=== PATIENT | female | born 1960 | race African-American/Black ===

== ENCOUNTER 2019-04-01 11:49 | Inpatient (IN) ==
--- NOTE | 2019-04-01 13:08 | PROVIDER DOCUMENTATION ---
HPI-Respiratory General - General Chief Complaint: Shortness of Breath Stated Complaint: oxygen low Time Seen by Provider: 04/01/19 12:22 Source: patient, family Allergies/Adverse Reactions: Patient Allergies Allergy/AdvReac Type Severity Reaction Status Date / Time No Known Allergies Allergy Verified 04/01/19 14:56 Home Medications: Home Medication List Medication Instructions Recorded Confirmed Last Taken Type Amlodipine [Norvasc] 10 mg PO DAILY 05/17/17 10/25/18 Unknown History Fluticasone/Salmet 500/50 INH 1 inh PO BID 03/14/18 10/25/18 Unknown History [Advair 500/50 Diskus] Fluphenazine HCl [Prolixin] 50 mg IM DIRECTED #2 vial 04/02/18 10/09/18 Unknown Rx Paliperidone Palmitate [Invega 234 mg IM Q30D #1 syringe 04/02/18 10/25/18 Unknown Rx Sustenna] Trazodone [Desyrel] 25 mg PO HS PRN PRN #60 tab 04/02/18 10/25/18 Unknown Rx Albuterol 2.5MG/Ipratrop 0.5MG 3 ml INH Q4H PRN PRN #180 neb 10/15/18 10/25/18 Unknown Rx [Duoneb (A & A)] Furosemide [Lasix] 40 mg PO BID #60 tab 10/15/18 10/25/18 10/25/18 Rx Potassium Chloride E.r. [Micro-K] 10 meq PO DAILY #30 cap 10/15/18 10/25/18 Rx Cefdinir 300 mg PO BID 10/25/18 10/25/18 10/25/18 History Diclofenac Sodium [Voltaren] 75 mg PO TID PRN 10/25/18 10/25/18 Unknown History Meloxicam 15 mg PO DAILY 10/25/18 10/25/18 10/25/18 History Prednisone 20 mg PO BID 10/25/18 10/25/18 10/25/18 History - History of Present Illness-Resp Nature of Presenting Problem: reports while that she was at the [facility], oxygen level is 50s, disoriented, right arm weakness, unable to carry her oxygen tank. Review of Systems - Adult - REVIEW OF SYSTEMS - ADULT Constitutional: reports: no symptoms reported Eyes: reports: no symptoms reported Ears, Nose, Mouth & Throat: reports: no symptoms reported Cardiovascular: reports: no symptoms reported Respiratory: reports: no symptoms reported Gastrointestinal: reports: no symptoms reported Genitourinary: reports: no symptoms reported Musculoskeletal: reports: no symptoms reported Integumentary: reports: no symptoms reported Neurological: reports: no symptoms reported Psychiatric: reports: no symptoms reported Endocrine: reports: no symptoms reported Hematologic/Lymphatic: reports: no symptoms reported Allergic/Immunologic: reports: no symptoms reported All Other Systems: Reviewed and Negative Past History - Adult - PAST MEDICAL HISTORY-ADULT Review of Records: reports: Old Records Reviewed, Nursing Assessment Review, Medications Reviewed, Social history reviewed & non-contributory. Major Childhood Illnesses: reports: history unknown Cardiovascular: reports: HTN Respiratory: reports: asthma, COPD Gastrointestinal: reports: denies history Obstetrical/Gynecological: reports: denies history Genitourinary: reports: denies history Musculoskeletal: reports: denies history Neurological: reports: denies history Psychiatric: reports: schizophrenia Endocrine/Immune: reports: Diabetes Other Conditions: reports: denies history - PRIOR SURGERIES/PROCEDURES Surgical/Procedure History: reports: BTL - IMMUNIZATION STATUS Childhood Immunizations: See Nurse Assessment Flu Vaccine: See Nurse Assessment - FAMILY HISTORY Family History: reviewed, not pertinent - SOCIAL HISTORY Smoking: denies Substance Use: none/never Alcohol Use Frequency: never Living Situation: family Physical Exam-General - PHYSICAL EXAM-ADULT Initial Vital Signs Reviewed: Yes - CONSTITUTIONAL General Appearance: appears well, alert, other (h/o schizo, flat affect) - EYES Eyes: PERRL/EOMI, pink conjunctivae - HEAD, EARS, NOSE, MOUTH & THROAT HENMT: normocephalic/atraumatic, normal ENT inspection, other - NECK Neck: non-tender, full range of motion, supple - RESPIRATORY Respiratory: chest non-tender, lungs clear, normal breath sounds - CARDIOVASCULAR Cardiovascular: normal peripheral pulses, regular rate, rhythm, no edema - GASTROINTESTINAL (ABDOMEN) Abdominal Exam: normal bowel sounds, non tender, soft - MUSCULOSKELETAL Back Exam: normal inspection, no CVA tenderness, no vertebral tenderness Progress - PLAN OF CARE/RESULTS Progress/Plan/Lab Results: Vital Signs - 8 hr 04/01/19 11:51 04/01/19 11:56 04/01/19 14:57 Temperature 97.5 F L Pulse Rate 81 74 Respiratory Rate 18 19 Blood Pressure 148/72 162/89 O2 Sat by Pulse Oximetry 91 L 93 L 04/01/19 14:58 04/01/19 15:00 04/01/19 15:10 Temperature Pulse Rate 76 75 75 Respiratory Rate 14 15 20 Blood Pressure 162/89 O2 Sat by Pulse Oximetry 93 L 92 L 90 L 04/01/19 15:20 04/01/19 15:30 04/01/19 15:40 Temperature Pulse Rate 73 73 74 Respiratory Rate 19 21 17 Blood Pressure O2 Sat by Pulse Oximetry 93 L 94 L 91 L 04/01/19 15:50 04/01/19 16:00 04/01/19 16:10 Temperature Pulse Rate 73 76 75 Respiratory Rate 21 16 14 Blood Pressure O2 Sat by Pulse Oximetry 90 L 95 92 L 04/01/19 16:20 04/01/19 16:30 04/01/19 16:35 Temperature Pulse Rate 73 85 Respiratory Rate 14 18 Blood Pressure O2 Sat by Pulse Oximetry 87 L 94 L 91 L Laboratory Results - last 24 hr 04/01/19 04/01/19 04/01/19 14:25 14:25 14:25 WBC 8.22 RBC 5.29 Hgb 15.4 Hct 49.9 H MCV 94.3 MCH 29.1 MCHC 30.9 L RDW Std Deviation 19.0 H Plt Count 296 MPV 9.2 Immature Gran % (Auto) 0.2 Neut % (Auto) 52.3 Lymph % (Auto) 39.5 [place] % (Auto) 6.7 Eos % (Auto) 0.7 Baso % (Auto) 0.6 Immature Gran # (Auto) 0.02 Neut # (Auto) 4.29 Lymph # (Auto) 3.25 [place] # (Auto) 0.55 Eos # (Auto) 0.06 Baso # (Auto) 0.05 Specimen Type Sample Site pH pCO2 pO2 HCO3 Base Excess Oxyhemoglobin ABG O2 Sat (Calculated) ABG O2 Saturation ABG Carboxyhemoglobin ABG Methemoglobin Dionisio Test A-a O2 Difference Total Hemoglobin Lactate Liter Flow Blood Gas Modality FiO2 % Sodium 141 Potassium 2.8 L Chloride 91 L Carbon Dioxide 39 H Anion Gap 11 BUN 3 L Creatinine 0.6 Estimated GFR/1.73 m2 > 60 BUN/Creatinine Ratio 5 Glucose 81 Calculated Osmolality 277 Calcium 9.0 Magnesium 1.9 Total Bilirubin 0.56 AST 10 ALT < 5 L Alkaline Phosphatase 111 H Eim-S-Oyyhenyudjt Pept 802 H Total Protein 7.6 Albumin 4.1 Globulin 3.5 Albumin/Globulin Ratio 1.2 04/01/19 15:55 WBC RBC Hgb Hct MCV MCH MCHC RDW Std Deviation Plt Count MPV Immature Gran % (Auto) Neut % (Auto) Lymph % (Auto) [place] % (Auto) Eos % (Auto) Baso % (Auto) Immature Gran # (Auto) Neut # (Auto) Lymph # (Auto) [place] # (Auto) Eos # (Auto) Baso # (Auto) Specimen Type ARTERIAL Sample Site R RADIAL pH 7.42 pCO2 78 H* pO2 58 L HCO3 40.8 H Base Excess 20.9 H Oxyhemoglobin 84.3 L* ABG O2 Sat (Calculated) 17.4 ABG O2 Saturation 91.7 L ABG Carboxyhemoglobin 7.00 H* ABG Methemoglobin 1.2 Dionisio Test YES A-a O2 Difference 101.0 Total Hemoglobin 14.7 Lactate 0.60 Liter Flow 4.0 Blood Gas Modality CANNULA FiO2 % 36.0 Sodium Potassium Chloride Carbon Dioxide Anion Gap BUN Creatinine Estimated GFR/1.73 m2 BUN/Creatinine Ratio Glucose Calculated Osmolality Calcium Magnesium Total Bilirubin AST ALT Alkaline Phosphatase Cwz-Z-Rolzwphcgiv Pept Total Protein Albumin Globulin Albumin/Globulin Ratio Orders Category Date Time Status CT HEAD W/O CONTRAST [CT] Stat Exams 04/01/19 17:29 Ordered cxr [CHEST-2 VIEWS] [RAD] Stat Exams 04/01/19 13:12 Completed ABG [RESP] Routine Lab 04/01/19 15:55 Completed BNP [PRO B-NATRIURETIC PEPTIDE] Stat Lab 04/01/19 14:25 Completed CBC WITH ELECTRONIC DIFF [HEME] Stat Lab 04/01/19 14:25 Completed COMPREHENSIVE METABOLIC PANEL [CHEM] Stat Lab 04/01/19 14:25 Completed MAGNESIUM [CHEM] Stat Lab 04/01/19 14:25 Completed Albuterol 2.5MG/Ipratrop 0.5MG [Duoneb (A & A)] Med 04/01/19 16:24 Discontinued 3 ml INH NOW ONE Methylprednisolone Sod Succ [Solu-Medrol] Med 04/01/19 16:25 Discontinued 125 mg IV NOW ONE Potassium Chloride 20% Liquid Med 04/01/19 16:06 Discontinued 40 meq PO NOW ONE Aerosol Treatments Routine Oth 04/01/19 16:25 Active Aerosol Treatments Stat Oth 04/01/19 16:25 Active [facility] [address] , [address], [place] [address] Department of Imaging Patient: YUMIKO GARCIA ADM Date: 04/01/19 MR#: [id number] : 1960 ADM Status: PRE ER Age/Sex: 58/F Room/Bed: Loc: ED Ordering Physician: Cyn Nguyen MD Family Physician: None,PCP Reason for Procedure: pna Signed EXAM: CHEST-2 VIEWS 04/01/2019 HISTORY: pna TECHNIQUE: PA and lateral chest COMMENT: There is cardiomegaly. There is increased interstitial markings in the lung bases. The latter appears worse than on the previous examination of 03/18/2019. There appear to be small pleural effusions bilaterally. IMPRESSION: Pulmonary edema and pleural effusions with cardiomegaly. Electronically signed by Girish Bustillos 04/01/2019 1:27 PM 04/01/19 1327 Interpreting Physician: Girish Bustillos MD Dictated Date/Time: 04/01/19 1327 cc: Cyn Nguyen MD; None,PCP Result Diagrams: 04/01/19 14:25 04/01/19 14:25 - REASSESSMENT Reassessment #1 Time Reassessed: 16:12 (dysfunctional oxygen tank. likely exaggerate her copd. ) Reassessment #2 Time Reassessed: 17:31 (WALKING TO DISCHARGE PT, HOWEVER WHILE ON HER OXYGEN SUPPLEMENT HERE, PT SAT WENT TO 80% DISCUSSED WITH HOSPITALIST FOR ADMISSION) - CONSULTS/PCP/HOSPITALIST Notification #1 *Consult/PCP/Hospitalist*: DR. GTZ Time Discussed: 17:32 Consult Disposition: Admit Departure - Departure Date of Disposition Decision: 04/01/19 Time of Disposition Decision: 16:09 DIAGNOSIS: Schizophrenia, Hypokalemia, COPD with exacerbation, Pulmonary edema, Pleural effusion Disposition: ADMITTED INPATIENT Certified Medical Emergency: Emergent Condition: Stable Additional Freetext Instructions: follow up with your doctor tomorrow worsening symptoms return to ED. ED Follow Up Instructions: You have been treated by a care provider in the Emergency Department. These instructions are being provided to you so you can have an understanding of how to care for yourself upon discharge. Upon discharge from the Emergency Department, you are responsible for making arrangements for follow-up care by a physician of your choice. Take all prescribed medications as directed. Return to the Emergency Department immediately for any new or worsening symptoms. You may call the Physician Referral phone number at [phone] to obtain a list of Physicians who are taking new patients. Referrals and Follow-Ups: None,PCP [Primary Care Provider] - Call for Appoint. 1-2days - Critical Care Note This patient required my direct & personal management of CC.: No Attestation - Physician/ YOU Attestation The physician spent face to face time with patient:: Yes Advanced Practice Provider documentation review:: Supervising physician onsite and consulted in the evaluation and care of this patient. The physician did have a face to face encounter with the patient.
--- NOTE | 2019-04-01 13:14 | ED EKG INTERP ---
This chart was entered by Joelle Patino Scribe, acting as scribe for Aniket Paredes MD. EKG Interpretation - EKG Time of EKG reading by physician:: 12:00 EKG Read and Signed by:: Aniket Paredes EKG Interpretation (*Must complete 3 of following elements*): Normal (borderline) Rate: 68 Rhythm: nsr [place]: normal QRS: normal RI Interval: normal ST Wave: normal Comments: possible left atrial enlargement Attestation - Physician/ YOU Attestation Patient care was provided by Advanced Practice Provider:: No The physician spent face to face time with patient:: Yes Advanced Practice Provider documentation review:: Supervising physician onsite and consulted in the evaluation and care of this patient. The physician did have a face to face encounter with the patient. This chart was documented by the indicated scribe, (Joelle Patino Scribe) and accurately reflects the services I performed and decisions made by me, Aniket Paredes MD, as attested by the provider's signature.
--- NOTE | 2019-04-01 13:30 | Diag Imaging Result Doc PS360 ---
EXAM: CHEST-2 VIEWS 04/01/2019 HISTORY: pna TECHNIQUE: PA and lateral chest COMMENT: There is cardiomegaly. There is increased interstitial markings in the lung bases. The latter appears worse than on the previous examination of 03/18/2019. There appear to be small pleural effusions bilaterally. IMPRESSION: Pulmonary edema and pleural effusions with cardiomegaly. Electronically signed by Girish Bustillos 04/01/2019 1:27 PM
[2019-04-01 14:38] LABS: BASO# 0.05 X1000 (0.0-0.2); BASO% 0.6 % (0.0-0.8); EOS# 0.06 X1000 (0.0-0.7); EOS% 0.7 % (0.0-10.0); HEMATOCRIT 49.9 % (37.0-47.0); HEMOGLOBIN 15.4 g/dL (12.0-16.0); IMM GRAN# 0.02 X1000 (0.0-0.04); IMM GRAN% 0.2 % (0.0-0.5); LYMPH# 3.25 X1000 (1.2-3.4); LYMPH% 39.5 % (20.5-51.1); MCH 29.1 PG (27-31); MCHC 30.9 g/dL (33-37); MCV 94.3 FL (81-99); MONO# 0.55 X1000 (0.11-0.59); MONO% 6.7 % (1.7-9.3); MPV 9.2 FL (7.4-10.4); NEUT# 4.29 X1000 (1.4-6.5); NEUT% 52.3 % (42.2-75.2); PLT 296 X1000 (130-400); RBC 5.29 XMIL (4.2-5.4); WBC 8.22 X1000 (4.8-10.8)
[2019-04-01 15:28] LABS: AGAP 11; ALB/GLOB RATIO 1.2; ALBUMIN 4.1 g/dL (3.5-5.0); ALKALINE PHOSPHATASE 111 U/L (32-104); BUN 3 mg/dL (8-22); CHLORIDE 91 mmol/L (98-107); COSMO 277; CREATININE 0.6 mg/dL (0.5-0.9); ESTIMATED GFR > 60; GLUCOSE 81 mg/dL (70-104); GOT 10 U/L (10-30); GPT < 5 U/L (10-36); MAGNESIUM 1.9 mg/dL (1.5-2.7); POTASSIUM 2.8 mmol/L (3.5-5.1); SODIUM 141 mmol/L (136-145); TCO2 39 mmol/L (25-35); TOTAL BILIRUBIN 0.56 mg/dL (0.20-1.00); TOTAL PROTEIN 7.6 g/dL (6.3-8.3)
[2019-04-01 16:03] LABS: ALLEN TEST YES; BE 20.9 mmoll (-3.0-3.0); BLOOD TYPE ARTERIAL; HCO3-(ACT) 40.8 mmoll (20.0-26.0); METHB 1.2 % (0.0-1.5); O2(CT) 17.4 mL/dL (15.0-23.0); PO2(98.6) 58 mmHg (60-100); SAMPLE BLOOD; SAO2 91.7 % (95.0-100.0); THB 14.7 g/dL (11.5-17.4); pH(98.6) 7.42 (7.35-7.45)
[2019-04-01 16:05] LABS: PCO2(98.6) 78 mmHg (35-45)
[2019-04-01 16:06] LABS: MODALITY CANNULA; O2HB 84.3 % (95.0-99.0)
[2019-04-01] MEDS ORDERED: POTASSIUM CHLORIDE 20% LIQUID PO ONE (16:06)
[2019-04-01] MEDS ORDERED: DUONEB (A & A) INH ONE (16:24)
[2019-04-01] MEDS ORDERED: SOLU-MEDROL IV ONE (16:25)
[2019-04-01] MEDS ORDERED: LASIX IV ONE (17:36)
[2019-04-01] MEDS ORDERED: XOPENEX NEB INH PRN (18:17)
--- NOTE | 2019-04-01 18:52 | Diag Imaging Result Doc PS360 ---
CT HEAD W/O CONTRAST - 04/01/2019 INDICATION: CVA COMPARISON: 02/28/2019 FINDINGS: The ventricles and sulci are normal in size and contour. No intracranial mass or hemorrhage. The skull is intact. The sinuses mastoids and middle ears are clear. IMPRESSION: Negative exam. This exam was performed using automated exposure control, adjustment of mA or kV according to patient size, and/or use of iterative reconstruction technique Electronically signed by Jason Nguyen 04/01/2019 6:49 PM
[2019-04-01] MEDS: ROCEPHIN 1 GM in NS 50 ML IV SCH (19:30)
[2019-04-01] MEDS: NICODERM PATCH TD SCH (19:30)
[2019-04-01] MEDS: XOPENEX NEB INH SCH ×2 (19:40→22:37)
--- NOTE | 2019-04-01 20:14 | HISTORY AND PHYSICAL ---
PRIMARY CARE PROVIDER: None. CHIEF COMPLAINT: Dyspnea. HISTORY OF PRESENT ILLNESS: Ms. Chau is a 58-year-old female well known to our service with a history of COPD, schizophrenia, and hypertension who comes to the ER today with complaints of dyspnea. Per ER report, her O2 tank, which she uses at home, was dysfunctional and not working correctly. She was hypoxic on arrival to the ER and has maintained marginal O2 saturations since she arrived. She is a poor historian due to her psychiatric history. Apparently she lives at a local long term. She denies any other complaints other than the shortness of breath. No fever or chest pain. No lower extremity edema, orthopnea, nausea, or vomiting. Chest x-ray showed some mild pulmonary edema and cardiomegaly, more right-sided than left. ABG did show hypercapnic and hypoxemic respiratory failure, which is well compensated. Lasix and BiPAP has been ordered as well as IV steroids and antibiotics. She will be admitted for acute on chronic hypercapnic and hypoxemic respiratory failure. PAST MEDICAL HISTORY: 1. Hypertension. 2. COPD, on home O2. 3. Schizophrenia. 4. Type 2 diabetes. 5. Nicotine dependence. PAST SURGICAL HISTORY: Bilateral tubal ligation. SOCIAL HISTORY: She smokes a pack a day. She either lives with her family or in a local long term on [facility]. There is no family at the bedside and she is an extremely poor historian. There is no drug or alcohol use. REVIEW OF SYSTEMS: Very limited, but a 10 point review of systems was obtained and found to be negative with the exception of the HPI. HOME MEDICATIONS: Not compiled as of yet. ALLERGIES: No known drug allergies. PHYSICAL EXAMINATION: VITAL SIGNS: Blood pressure 148/72, heart rate 75, respiratory rate 17, and O2 saturation 92% on 4 L nasal cannula. Temperature is 97.5. GENERAL: This is a disheveled and chronically ill appearing, 58-year-old female lying in a hospital bed in no acute distress. NEUROLOGIC: The patient is disoriented, stating she is at [facility]. She does not know the year but is able to state her name. She follows commands without focal deficits. HEENT: The head is atraumatic and normocephalic. Her pupils are equal, round, and reactive to light. Oral mucosa is moist. NECK: Trachea is midline. There is no JVD. CHEST: Inspiratory and expiratory wheezes bilaterally with some crackles in the lung bases. CARDIOVASCULAR: Regular rate and rhythm. S1 and S2 are noted. There are no murmurs. GI: Soft, nondistended, and nontender. Bowel sounds are positive. EXTREMITIES: Trace edema. Pulses are 1+ bilaterally. DIAGNOSTIC DATA: Chest x-ray shows cardiomegaly and pulmonary edema. WBC 8.2, hemoglobin 15.4, hematocrit 49.9, and platelet count 296. ABG: pH 7.42, CO2 78, O2 58, bicarbonate 40.8, oxyhemoglobin 84.3, carboxyhemoglobin 7. Sodium 141, potassium 2.8, chloride 91, CO2 39, anion gap 11, BUN 3, creatinine 0.6, glucose 81, calcium 9, magnesium 1.9, bilirubin 0.56, AST 10, ALT less than 5, alkaline phosphatase 111. proBNP 802. ASSESSMENT AND PLAN: 1. Combined acute on chronic hypercapnic and hypoxemic respiratory failure: Likely due to chronic obstructive pulmonary disease exacerbation, possibly malfunctioning oxygen tank. Will continue breathing treatments, aggressive pulmonary toilet, intravenous steroids, and antibiotics. We have also added some Lasix. Will trend her cardiac enzymes and monitor her on telemetry. 2. Chronic obstructive pulmonary disease exacerbation: As above. Will continue aggressive pulmonary hygiene. Recheck arterial blood gas at 10:00 p.m. tonight and again in the morning. Recheck a chest x-ray in the morning. If no improvement, she may need a Pulmonary consultation. 3. Hypokalemia: Will replace and recheck. Continue treating as necessary. 4. Schizophrenia: Will continue home medications once compiled. 5. Report of diabetes mellitus: Does not appear that patient is on any antidiabetic. Her last hemoglobin A1c was 5.6 but this was in September of 2016. Will recheck a hemoglobin A1c and monitor her sugars closely and treat if necessary. 6. Nicotine dependence: We have prescribed a nicotine patch. Will continue cessation education. 7. Disposition: We need to find out exactly what her living situation is, if she has the ability to have her oxygen refilled, and what her overall care is. Will consult Social Work. 8. Deep venous thrombosis prophylaxis with sequential compression devices. Further recommendations to follow. Dictated by JOHNATHAN Lake for Baldev Herbert MD cc: JOHNATHAN Lake MD I have seen and examined Ms Chau today. No family members at bedside. Ms Chau presents with Dyspnea secondary to COPD exacerbation with hypoxemic and hypercarbic failure. I agree with the above HPI and the plan reflects my opinion discussed with the LINE PAINTING MACHINE OPERATOR. I have also discussed the plan with Ms. Chau. MAGY
[2019-04-01 20:19] LABS: HEMOGLOBIN A1C 5.8 % (4.8-6.0)
[2019-04-01 21:50] LABS: AGAP 15; BUN 3 mg/dL (8-22); CHLORIDE 91 mmol/L (98-107); COSMO 286; CREATININE 0.6 mg/dL (0.5-0.9); ESTIMATED GFR > 60; GLUCOSE 110 mg/dL (70-104); MAGNESIUM 1.7 mg/dL (1.5-2.7); POTASSIUM 3.3 mmol/L (3.5-5.1); SODIUM 145 mmol/L (136-145); TCO2 39 mmol/L (25-35)
[2019-04-01] MEDS: HUMULIN R SUBQ SCH (21:52)
[2019-04-01 22:18] LABS: ALLEN TEST YES; BE 24.9 mmoll (-3.0-3.0); BLOOD TYPE ARTERIAL; METHB 1.6 % (0.0-1.5); O2(CT) 19.3 mL/dL (15.0-23.0); PO2(98.6) 64 mmHg (60-100); SAMPLE BLOOD; SAO2 93.7 % (95.0-100.0); THB 15.6 g/dL (11.5-17.4); pH(98.6) 7.46 (7.35-7.45)
[2019-04-01 22:21] LABS: PCO2(98.6) 77 mmHg (35-45)
[2019-04-01 22:22] LABS: MODALITY BI PAP; O2HB 87.9 % (95.0-99.0)
[2019-04-01 23:16] LABS: ESTIMATED GFR > 60
[2019-04-01 23:25] LABS: AGAP 13; BUN 3 mg/dL (8-22); CALCIUM 8.9 mg/dL (8.8-10.2); CHLORIDE 90 mmol/L (98-107); COSMO 285; CREATININE 0.5 mg/dL (0.5-0.9); GLUCOSE 131 mg/dL (70-104); MAGNESIUM 1.6 mg/dL (1.5-2.7); POTASSIUM 2.9 mmol/L (3.5-5.1); SODIUM 144 mmol/L (136-145); TCO2 41 mmol/L (25-35)
[2019-04-02] MEDS ORDERED: POTASSIUM CHLORIDE 20% LIQUID PO ONE ×2 (00:15→04:30)
[2019-04-02] MEDS: XOPENEX NEB INH SCH ×6 (03:38→23:37)
[2019-04-02 05:54] LABS: BASO# 0.01 X1000 (0.0-0.2); BASO% 0.2 % (0.0-0.8); HEMATOCRIT 49.3 % (37.0-47.0); HEMOGLOBIN 15.2 g/dL (12.0-16.0); LYMPH# 1.08 X1000 (1.2-3.4); LYMPH% 24.1 % (20.5-51.1); MCH 28.7 PG (27-31); MCHC 30.8 g/dL (33-37); MCV 93.2 FL (81-99); MONO# 0.06 X1000 (0.11-0.59); MONO% 1.3 % (1.7-9.3); MPV 9.9 FL (7.4-10.4); NEUT# 3.33 X1000 (1.4-6.5); NEUT% 74.4 % (42.2-75.2); PLT 298 X1000 (130-400); RBC 5.29 XMIL (4.2-5.4); RDW 18.8 % (11.5-14.5); WBC 4.48 X1000 (4.8-10.8)
[2019-04-02] MEDS: HUMULIN R SUBQ SCH ×4 (06:11→22:01)
[2019-04-02 07:21] LABS: AGAP 12; BUN 5 mg/dL (8-22); CALCIUM 8.8 mg/dL (8.8-10.2); CHLORIDE 91 mmol/L (98-107); COSMO 283; CREATININE 0.5 mg/dL (0.5-0.9); ESTIMATED GFR > 60; GLUCOSE 149 mg/dL (70-104); MAGNESIUM 1.6 mg/dL (1.5-2.7); SODIUM 142 mmol/L (136-145); TCO2 39 mmol/L (25-35)
[2019-04-02 07:22] LABS: POTASSIUM 4.2 mmol/L (3.5-5.1)
[2019-04-02] MEDS: SOLU-MEDROL IV SCH ×2 (09:34→16:07)
[2019-04-02] MEDS: NICODERM PATCH TD SCH (09:35)
--- NOTE | 2019-04-02 09:37 | EKG Report ---
Test Performed on : 04/01/2019 12:00:10 PM Test Reason : ED. NO EKG ORDER FOR MUSE Blood Pressure : / mmHG Vent. Rate : 068 BPM Atrial Rate : 068 BPM P-R Int : 154 ms QRS Dur : 088 ms QT Int : 440 ms P-R-T Axes : 044 069 071 degrees QTc Int : 467 ms Normal sinus rhythm. Possible Left atrial enlargement Borderline ECG When compared with ECG of 18-MAR-2019 11:44, (Unconfirmed) Nonspecific T wave abnormality has replaced inverted T waves in Anterior leads Unconfirmed Result
--- NOTE | 2019-04-02 13:13 | PROGRESS NOTE ---
DATE: 04/02/2019 SUBJECTIVE: Today Ms. Chau refers to be doing a little better. Still has some shortness of breath and wheezing. OBJECTIVE: Vital signs: Blood pressure is 145/82, pulse 82, respirations 16, temperature 97.9 degrees. General: Ms. Chau is a 58-year-old female. She looks a lot older than her age. She is in bed. She is not in any distress. She is still on nasal cannula. HEENT: Mucosa is pink and moist. Anicteric. Acyanotic. Neck: Supple. There was no jugular venous distention. Chest: Air entry is bilaterally reduced. There is remarkable wheezing in both lung hart. There is also prolonged expiratory phase of respiration and some rhonchi. No crackles. Cardiovascular: Regular rate and rhythm. Abdomen: Soft, nontender. Bowel sounds present. Extremities: No pedal edema. BRUSH CLEARING LABORER: Patient is awake, alert, follows some basic commands. She is oriented to person but disoriented to place and time. LABORATORY DATA: WBC is 4.48, hemoglobin is 15.2, platelet count 298,000. Chemistry is also reviewed. Slight alkalotic. Rest of chemistry is unremarkable. DIAGNOSTIC STUDIES: A chest x-ray yesterday shows pulmonary edema and pleural effusions with cardiomegaly. A CT scan of the head was unremarkable. ASSESSMENT: 1. Acute on chronic hypercarbic and hypoxemic respiratory failure due to chronic obstructive pulmonary disease. 2. Chronic obstructive pulmonary disease exacerbation. The patient is currently on standard of care (steroids, antibiotics and bronchodilation therapy). 3. Ongoing tobacco abuse. Patient has been counseled. 4. History of schizophrenia. The patient is on her home medications. 5. Metabolic alkalosis secondary to chronic respiratory acidosis. 6. Hypertension and diabetes controlled. cc: Baldev Herbert MD
[2019-04-02] MEDS: DOXYCYCLINE 100 MG in NS 250 ML IV SCH (16:08)
[2019-04-02] MEDS: ROCEPHIN 1 GM in NS 50 ML IV SCH (17:50)
[2019-04-03] MEDS: SOLU-MEDROL IV SCH ×2 (01:13→08:39)
[2019-04-03] MEDS: DOXYCYCLINE 100 MG in NS 250 ML IV SCH (01:13)
[2019-04-03] MEDS: XOPENEX NEB INH SCH ×3 (03:54→11:05)
[2019-04-03 05:40] LABS: HEMATOCRIT 47.9 % (37.0-47.0); LYMPH% 18.6 % (20.5-51.1); MCH 28.8 PG (27-31); MCHC 31.3 g/dL (33-37); MCV 91.9 FL (81-99); MONO# 0.08 X1000 (0.11-0.59); MONO% 1.9 % (1.7-9.3); MPV 9.2 FL (7.4-10.4); NEUT# 3.43 X1000 (1.4-6.5); NEUT% 79.5 % (42.2-75.2); PLT 288 X1000 (130-400); RBC 5.21 XMIL (4.2-5.4); RDW 18.9 % (11.5-14.5); WBC 4.31 X1000 (4.8-10.8)
[2019-04-03 06:18] LABS: AGAP 6; BUN 13 mg/dL (8-22); CALCIUM 9.2 mg/dL (8.8-10.2); CHLORIDE 92 mmol/L (98-107); COSMO 277; CREATININE 0.5 mg/dL (0.5-0.9); ESTIMATED GFR > 60; GLUCOSE 122 mg/dL (70-104); MAGNESIUM 1.7 mg/dL (1.5-2.7); POTASSIUM 3.4 mmol/L (3.5-5.1); SODIUM 138 mmol/L (136-145); TCO2 40 mmol/L (25-35)
[2019-04-03] MEDS: HUMULIN R SUBQ SCH ×2 (06:32→12:11)
--- NOTE | 2019-04-03 07:49 | Diag Imaging Result Doc PS360 ---
CHEST-PORTABLE - 04/03/2019 INDICATION: Dyspnea COMPARISON: 04/01/2019 FINDINGS: There has been improvement in the mild interstitial pulmonary edema in the lung bases. Improvement in the trace pleural effusions. There is linear atelectasis in the left midlung. Stable mild cardiomegaly. Pulmonary vascularity is top normal. IMPRESSION: Significant improvement from prior. Electronically signed by Jason Nguyen 04/03/2019 7:47 AM
[2019-04-03] MEDS: NICODERM PATCH TD SCH (08:33)
[2019-04-03 11:35] VITALS: BP 150/86
[2019-04-03 12:10] LABS: ALLEN TEST YES; BLOOD TYPE ARTERIAL; HCO3-(ACT) 36.1 mmoll (20.0-26.0); METHB 1.3 % (0.0-1.5); O2(CT) 17.7 mL/dL (15.0-23.0); SAMPLE BLOOD; SAO2 82.8 % (95.0-100.0); THB 15.8 g/dL (11.5-17.4); pH(98.6) 7.51 (7.35-7.45)
[2019-04-03 12:12] LABS: PCO2(98.6) 51 mmHg (35-45)
[2019-04-03 12:13] LABS: MODALITY ROOM AIR; O2HB 80.1 % (95.0-99.0); PO2(98.6) 48 mmHg (60-100)
[2019-04-03] MEDS ORDERED: PNEUMOVAX 23 IM ONE (13:51)
--- NOTE | 2019-04-04 07:33 | DISCHARGE SUMMARY ---
ADMISSION DATE: 04/01/2019 DISCHARGE DATE: 04/03/2019 DISPOSITION: Home. FOLLOW-UP: Patient's PCP. ADMISSION DIAGNOSES: 1. Combined acute on chronic hypercarbic and hypoxemic respiratory failure. 2. Chronic obstructive pulmonary disease exacerbation. 3. History of schizophrenia. 4. Nicotine dependence. DISCHARGE DIAGNOSES: 1. Acute on chronic hypercarbic respiratory failure. 2. Acute on chronic hypoxemic respiratory failure. 3. Chronic obstructive pulmonary disease exacerbation. 4. Ongoing tobacco abuse. 5. History of schizophrenia. 6. Metabolic alkalosis secondary to chronic respiratory acidosis. 7. Hypertension. 8. Diabetes mellitus. DISCHARGE MEDICATIONS: 1. Amlodipine 10 mg daily. 2. Fluticasone. 3. Trazodone 25 mg p.o. at bedtime. 4. Prolixin 50 mg as directed. 5. Furosemide 40 mg b.i.d. 6. Augmentin 875 p.o. b.i.d. 7. Doxycycline. 8. Prednisone at titrating dose. 9. Home 2 oxygen. IMAGING STUDIES OF SIGNIFICANCE: 1. A chest x-ray did show pulmonary edema and pleural effusion with cardiomegaly. 2. CT scan of the head was negative. 3. A repeat chest x-ray this morning shows significant improvement from prior. PRESENTING COMPLAINT: Dyspnea. HISTORY OF PRESENTING COMPLAINT: Ms. Chau is a 58-year-old female with a history of schizophrenia, hypertension, and COPD on home 2 oxygen. It appears that her oxygen tank developed some difficulties so she was not able to utilize them. She came to the emergency department, and was found to be remarkably hypoxemic and was also wheezing. Ms. Chau continues to be smoking. She was admitted for further medical care. HOSPITAL COURSE: Ms. Chau was admitted to the [facility], and was started on BiPAP therapy, IV antibiotics, steroids, and bronchodilation therapy. She did improve throughout the hospital course, however, we still thought that she needed to stay a day or 2 more, but Ms. Chau was extremely adamant that she had stuff to do at home, and that she needed to be discharged home. She had shown remarkable improvement, and even the followup chest x-ray documents improvement. I think she is going to be okay. I will just advise her to completely stay away from smoking if she wants to get better. All of her discharge instructions have been discussed with her. She has been evaluated for home 2 oxygen, and she does qualify. There is an arrangement for home oxygen for her. All the discharge instructions have been discussed with her. She voices understanding. TIME SPENT: Time spent for discharge is 33minutes. cc: Baldev Herbert MD
== END 2019-04-03 14:51 | disposition home or self-care (01) | DRG 189 ==
LOC: ED 11:49 → 3S 18:38
PROVIDERS: ATTEND Internal Medicine
CPT/HCPCS: 70450; 71010; 71020; 71045; 71046; 80048; 80053; 82550; 82805; 82948; 83036; 83735; 83880; 84484; 85025; 90732; 93005; 94640; 94660; 94761; 94762; 96374; 96375; 99285; A9270; J0696; J1940; J2930; J7050; XXXXX